=== PATIENT | female | born 1955 ===

== ENCOUNTER 2020-10-13 15:15 | Emergency (ER) | payer MEDICAID, OTHER ==
[~2020-10-13] VITALS: Ht 160 cm; Wt 104.3 kg
[2020-10-13 17:28] VITALS: BP 158/70
== END 2020-10-13 17:41 | disposition home or self-care (01) ==
LOC: ER 15:15
DX: S00.83XA Contusion of other part of head, initial encounter (principal); S00.11XA Contusion of right eyelid and periocular area, initial encounter; M50.31 Other cervical disc degeneration, high cervical region; R51.9 Headache, unspecified; I10 Essential (primary) hypertension; Z88.5 Allergy status to narcotic agent; Z88.0 Allergy status to penicillin; Z88.2 Allergy status to sulfonamides; Z88.8 Allergy status to other drugs, medicaments and biological substances; W18.09XA Striking against other object with subsequent fall, initial encounter; Y93.89 Activity, other specified; Y92.89 Other specified places as the place of occurrence of the external cause; Y99.8 Other external cause status
CPT/HCPCS: 70450; 70486; 72125